=== PATIENT | female | born 1965 | race Caucasian/White ===

== ENCOUNTER → 2024-07-03 08:32 | Outpatient (REF) | payer OTHER, SELFPAY | LOC: RAD 08:32 | PROVIDERS: ATTENDING PHYSICIAN Physical Medicine & Rehabilitation; FAMILY PHYSICIAN Internal Medicine | DX: M47.816 Spondylosis without myelopathy or radiculopathy, lumbar region (principal) | CPT/HCPCS: 72114 ==

== ENCOUNTER → 2024-07-17 14:39 | Outpatient (REF) | payer OTHER, SELFPAY | LOC: RAD 14:39 | PROVIDERS: ATTENDING PHYSICIAN Internal Medicine; REFERRING PHYSICIAN Physical Medicine & Rehabilitation | DX: Z13.820 Encounter for screening for osteoporosis (principal) | CPT/HCPCS: 77080 ==

== ENCOUNTER → 2024-11-18 11:43 | Outpatient (REF) | payer OTHER, SELFPAY | LOC: WDC 11:43 | PROVIDERS: ATTENDING PHYSICIAN Internal Medicine | DX: Z12.31 Encounter for screening mammogram for malignant neoplasm of breast (principal) | CPT/HCPCS: 77063; 77067 ==

== ENCOUNTER → 2025-01-27 07:52 | Outpatient (REF) | payer OTHER, SELFPAY | LOC: RAD 07:52 | PROVIDERS: ATTENDING PHYSICIAN Nurse Practitioner Family; FAMILY PHYSICIAN Internal Medicine | DX: R10.11 Right upper quadrant pain (principal) | CPT/HCPCS: 76700 ==

== ENCOUNTER → 2025-06-23 13:09 | Outpatient (REF) | payer OTHER, SELFPAY | LOC: RCS 13:09 | PROVIDERS: ATTENDING PHYSICIAN Internal Medicine Cardiovascular Disease; FAMILY PHYSICIAN Internal Medicine | DX: R07.89 Other chest pain (principal) | CPT/HCPCS: 93017; 93350 ==

== ENCOUNTER → 2025-06-26 14:59 | Outpatient (REF) | payer OTHER, SELFPAY | LOC: RCS 14:59 | PROVIDERS: ATTENDING PHYSICIAN Internal Medicine Cardiovascular Disease; FAMILY PHYSICIAN Internal Medicine | DX: R07.89 Other chest pain (principal) | CPT/HCPCS: 93306 ==

== ENCOUNTER → 2025-06-30 13:41 | Outpatient (REF) | payer SELFPAY | LOC: HWRAD 13:41 | PROVIDERS: ATTENDING PHYSICIAN Internal Medicine Cardiovascular Disease; FAMILY PHYSICIAN Internal Medicine | DX: R07.89 Other chest pain (principal) | CPT/HCPCS: 75571 ==